=== PATIENT | female | born 1990 | race Caucasian/White ===

== ENCOUNTER 2017-06-12 20:19 | Emergency (ER) | payer OTHER ==
[~2017-06-12] VITALS: Ht 157.5 cm; Wt 77.0 kg
[2017-06-12 20:20] VITALS: Ht 157.5 cm; Wt 77.0 kg
[2017-06-12 21:25] LABS: ADD SCAN DIFF NO
[2017-06-12 21:29] LABS: BASOPHILS % 0.3 % (0.0-2.0); EOSINOPHILS # 0.1 10^3/ul (0.0-0.5); HEMATOCRIT 34.8 % (37.0-47.0); HEMOGLOBIN 11.2 g/dl (12.0-16.0); LYMPHOCYTES # 2.5 10^3/ul (0.8-2.9); LYMPHOCYTES % 21.4 % (15.0-51.0); MEAN CORPUSCULAR HEMOGLOBIN 26.6 pg (29.0-33.0); MEAN CORPUSCULAR HGB CONC 32.2 g/dl (32.0-37.0); MEAN CORPUSCULAR VOLUME 82.7 fl (82.0-101.0); MEAN PLATELET VOLUME 10.4 fl (7.4-10.4); MONOCYTE # 0.6 10^3/ul (0.3-0.9); MONOCYTES % 5.6 % (0.0-11.0); NEUTROPHIL # 8.1 10^3/ul (1.6-7.5); NEUTROPHILS % 70.7 % (39.0-77.0); PLATELET COUNT 237 10^3/UL (140-415); RED BLOOD COUNT 4.21 10^6/ul (4.20-5.40); WHITE BLOOD COUNT 11.5 10^3/ul (4.8-10.8)
[2017-06-12] MEDS ORDERED: PRENAT PO (21:38)
--- NOTE | 2017-06-12 21:38 | RADRPT ---
PROCEDURE: US OB. CLINICAL INDICATION: Size and dates , pelvic pain TECHNIQUE: Multiple sonographic images of the pelvis and gravid uterus were obtained. The images were reviewed on a PACS workstation. COMPARISON: No prior studies are available for comparison. FINDINGS: There is a single viable intrauterine gestation. Cardiac activity is present with 115 beats per min [place]. There is a variable presentation. The placenta is anterior fundal. There is no evidence for an abruption or placenta previa. There is a normal amount of amniotic fluid with a MVP = 3.8 cm. Measurements were made in order to determine age. The results are as follows: BPD =3.0 cm HC =10.4 cm AC =9.7 cm FL =1.8 cm Estimated gestational age of approximately 15 weeks and 2 days based on ultrasound measurements. The estimated date of delivery is 12/02/2017, based on ultrasound measurements. The ovaries are normal. The right ovary measures 3.5 x 2.0 cm. The left ovary measures 2.5 x 1.6 c m. The EFW = 123 g RPTAT: AA IMPRESSION: Single viable intrauterine gestation of approximately 15 weeks and 2 days based on ultrasound measu rements. .Santy Snowden MD, MD Date Time Electronically viewed and signed by .Santy Snowden MD, on 06/12/2017 21:38 .S/
[2017-06-12 21:42] LABS: ADD UMIC YES; UR ASCORBIC ACID NEGATIVE (NEGATIVE); UR BILIRUBIN (Dip) NEGATIVE (NEGATIVE); UR BLOOD (Dip) NEGATIVE (NEGATIVE); UR CLARITY SLIGHTLY CLOUDY (CLEAR); UR COLOR YELLOW (YELLOW); UR GLUCOSE (Dip) NEGATIVE (NEGATIVE); UR KETONES (Dip) NEGATIVE (NEGATIVE); UR LEUKOCYTE ESTERASE (Dip) 2+ Leu/ul (NEGATIVE); UR MUCUS FEW /HPF (NONE SEEN); UR NITRITE (Dip) NEGATIVE (NEGATIVE); UR RBC 0 /HPF (0-5); UR SPECIFIC GRAVITY (Dip) 1.027 (1.003-1.030); UR SQUAMOUS EPITHELIAL CELL MODERATE /HPF (FEW); UR TOTAL PROTEIN (Dip) NEGATIVE (NEGATIVE); UR UROBILINOGEN (Dip) NEGATIVE (NEGATIVE)
[2017-06-12] MEDS ORDERED: CEPH-443 PO (22:16)
--- NOTE | 2017-06-12 22:24 | ERD ---
ER Documentation Chief Complaint Date/Time DATE: 06/12/17 TIME: 22:21 Chief Complaint 19 wks preg. C/O abd pain. . Same s/s with 1st delivery @ 20 EGA. HPI This 26-year-old female who is 19 weeks complains a day to of lower pelvic pressure says she feels like there is pressure in the suprapubic region pushing down into the vagina. She says she had the same thing before when her first . She said the doctor told her when she has her second she will need to have her cervix shot. She was on bedrest for 4 months and infant. Says she has no vaginal bleeding she does have urinary frequency but no dysuria or hematuria and no fever. She is not having pelvic cramps but pressure that seems constant ROS All systems reviewed and are negative except as per history of present illness. Medications Home Meds Active Scripts Cephalexin* (Keflex*) 500 Mg Capsule, 500 MG PO QID for 7 Days, CAP Prov:DOMINGUEZ OBREGON DO 06/12/17 Reported Medications Multivit/Min/Fol Ac/Iron/Pren* ( S*) 1 Tab Tab, 1 TAB PO DAILY, TAB 06/12/17 Allergies Allergies: Coded Allergies: No Known Drug Allergies (Verified Allergy, Mild, 06/12/17) PMhx/Soc Medical and Surgical Hx: pt denies Medical Hx History of Surgery: Yes () Anesthesia Reaction: No Hx Neurological Disorder: No Hx Respiratory Disorders: No Hx Cardiac Disorders: No Hx Psychiatric Problems: No Hx Miscellaneous Medical Probl: No Hx Alcohol Use: No Hx Substance Use: No Hx Tobacco Use: No Smoking Status: Never smoker FmHx Family History: No coronary disease Physical Exam Vitals Vital Signs Date Time Temp Pulse Resp B/P Pulse Ox O2 Delivery O2 Flow Rate FiO2 06/12/17 20:20 99.2 98 18 136/86 98 Physical Exam Const: Well-developed, well-nourished Head: Atraumatic, normocephalic Eyes: Normal Conjunctiva, PERRLA, EOMI, normal sclera, no nystagmus ENT: Normal External Ears, Nose and Mouth, moist mucus membranes. Neck: Full range of motion. No meningismus, no lymphadenopathy. Resp: Clear to auscultation bilaterally, no wheezing, rhonchi, rales Cardio: Regular rate and rhythm, no murmurs, S1 S2 present Abd: Soft, non tender x 4, non distended. Suprapubic tenderness had some mild positive gravid normal bowel sounds, no guarding or rebound, no pulsitile abdominal masses or bruits : Chaperoned with dialysis tech. Manual transvaginal exam demonstrates no cervical motion tenderness in the cervical office is closed thick and high Skin: No petechiae or rashes, no ecchymosis , no maculopapular rash Back: No midline or flank tenderness Ext: No cyanosis, or edema, FROM x 4, normal inspection, neurovascularly intact x 4 Neur: Awake and alert, STR 5/5 x 4, sensation intact x 4, no focal findings, cerebellum intact Psych: Normal Mood and Affect Result Diagram: 06/12/172104 Results 24 hrs Laboratory Tests Test 06/12/17 21:00 06/12/17 21:05 Urine Color YELLOW Urine Clarity SLIGHTLY CLOUDY Urine pH 5.0 Urine Specific [place] 1.027 Urine Ketones NEGATIVEmg/dL Urine Nitrite NEGATIVEmg/dL Urine Bilirubin NEGATIVEmg/dL Urine Urobilinogen NEGATIVEmg/dL Urine Leukocyte Esterase 2+Germaine/ul Urine Microscopic RBC 0/HPF Urine Microscopic WBC 15/HPF Urine Squamous Epithelial Cells MODERATE/HPF Urine Calcium Oxalate Crystals FEW/HPF Urine Mucus FEW/HPF Urine Hemoglobin NEGATIVEmg/dL Urine Glucose NEGATIVEmg/dL Urine Total Protein NEGATIVEmg/dl White Blood Count 11.510^3/ul Red Blood Count 4.2110^6/ul Hemoglobin 11.2g/dl Hematocrit 34.8% Mean Corpuscular Volume 82.7fl Mean Corpuscular Hemoglobin 26.6pg Mean Corpuscular Hemoglobin Concent 32.2g/dl Red Cell Distribution Width 15.0% Platelet Count 11741^3/UL Mean Platelet Volume 10.4fl Neutrophils % 70.7% Lymphocytes % 21.4% Monocytes % 5.6% Eosinophils % 1.0% Basophils % 0.3% Nucleated Red Blood Cells % 0.0/100WBC Neutrophils # 8.110^3/ul Lymphocytes # 2.510^3/ul Monocytes # 0.610^3/ul Eosinophils # 0.110^3/ul Basophils # 0.010^3/ul Nucleated Red Blood Cells # 0.010^3/ul Procedures/MDM PROCEDURE: US OB. CLINICAL INDICATION: Size and dates , pelvic pain TECHNIQUE: Multiple sonographic images of the pelvis and gravid uterus were obtained. The images were reviewed on a PACS workstation. COMPARISON: No prior studies are available for comparison. FINDINGS: There is a single viable intrauterine gestation. Cardiac activity is present with 115 beats per minute. There is a variable presentation. The placenta is anterior fundal. There is no evidence for an abruption or placenta previa. There is a normal amount of amniotic fluid with a MVP = 3.8 cm. Measurements were made in order to determine age. The results are as follows: BPD = 3.0 cm HC = 10.4 cm AC = 9.7 cm FL = 1.8 cm Estimated gestational age of approximately 15 weeks and 2 days based on ultrasound measurements. The estimated date of delivery is 12/02/2017, based on ultrasound measurements. The ovaries are normal. The right ovary measures 3.5 x 2.0 cm. The left ovary measures 2.5 x 1.6 cm. The EFW = 123 g RPTAT: AA IMPRESSION: Single viable intrauterine gestation of approximately 15 weeks and 2 days based on ultrasound measurements. .Santy Snowden MD, MD Date Time Electronically viewed and signed by .Santy Snowden MD, MD on 06/12/2017 21: 38 .S/ CC: DOMINGUEZ OBREGON DO Patient has urinary tract infection will send off a culture and put her on Keflex. Told her to days of bedrest for threatened miscarriage. There is no evidence of placenta previa on exam or on sonogram. She will follow-up with her OB Departure Diagnosis: Primary Impression: Threatened Additional Impression: UTI (urinary tract infection) Urinary tract infection type: acute cystitis Hematuria presence: without hematuria Qualified Code: N30.00 - Acute cystitis without hematuria Condition: Stable Patient Instructions: Understanding Urinary Tract Infections (UTIs), Possible Miscarriage (Threatened ) DOMINGUEZ OBREGON DO Jun 12, 2017 22:24
== END 2017-06-12 22:19 | disposition home or self-care (01) ==
LOC: E/R 20:19
DX: O20.0 Threatened abortion (principal); O23.42 Unspecified infection of urinary tract in pregnancy, second trimester; R10.2 Pelvic and perineal pain; Z3A.15 15 weeks gestation of pregnancy
CPT/HCPCS: 36415; 76801; 81001; 84702; 85025; Z7502

== ENCOUNTER 2017-08-13 21:18 | Outpatient (CLI) | payer OTHER ==
[~2017-08-13] VITALS: Ht 160 cm; Wt 80.3 kg
[~2017-08-13 21:18] MED LIST: CEPH-443 PO; PRENAT PO
[2017-08-13 21:51] VITALS: Ht 160 cm; Wt 80.3 kg
[2017-08-13 21:52] VITALS: BP 106/56; PULSE 86; RESP 18
[2017-08-13] MEDS ORDERED: LACTATED RINGER'S 1,000 ML IV ONE (22:00)
[2017-08-13 22:47] LABS: ADD UMIC YES; UR ASCORBIC ACID NEGATIVE (NEGATIVE); UR BACTERIA FEW /HPF (NONE SEEN); UR BILIRUBIN (Dip) NEGATIVE (NEGATIVE); UR BLOOD (Dip) NEGATIVE (NEGATIVE); UR CLARITY SLIGHTLY CLOUDY (CLEAR); UR COLOR YELLOW (YELLOW); UR GLUCOSE (Dip) NEGATIVE (NEGATIVE); UR KETONES (Dip) NEGATIVE (NEGATIVE); UR LEUKOCYTE ESTERASE (Dip) 2+ Leu/ul (NEGATIVE); UR NITRITE (Dip) NEGATIVE (NEGATIVE); UR RBC 2 /HPF (0-5); UR SQUAMOUS EPITHELIAL CELL FEW /HPF (FEW); UR TOTAL PROTEIN (Dip) NEGATIVE (NEGATIVE); UR UROBILINOGEN (Dip) NEGATIVE (NEGATIVE)
--- NOTE | 2017-08-13 23:10 | RADRPT ---
PROCEDURE: CERVICAL LENGTH ULTRASOUND CLINICAL INDICATION: Pre-term labor. TECHNIQUE: Trans-vaginal imaging of the cervical canal was performed utilizing perry-scale imaging. Sagittal and transverse images were obtained. Trans-abdominal images were also obtained. The yaritza ges were reviewed on a PACS workstation. COMPARISON: OB ultrasound 06/12/2017. FINDINGS: The cervix is closed with a length of 5.0 cm. There is a single live intrauterine . heart rate is 140 beats per minute. Position is cephalic and placenta is anterior, grade 1. There is no placenta previa. IMPRESSION: 1. Cervical length measures 5.0 cm. RPTAT: HFN .Kendrick Potts MD, MD Date Time Electronically viewed and signed by .Kendrick Potts MD, MD on 08/13/2017 23:09 .N/
--- NOTE | 2017-08-13 23:59 | PN ---
Triage Information Date/Time Reason for visit: Abd/pelvic pain Weeks of Gestation 24 weeks /Para Diabetes: none Hypertention: none Objective Vital Signs Date Time Temp Pulse Resp B/P Pulse Ox O2 Delivery O2 Flow Rate FiO2 08/13/17 21:52 98.0 86 18 106/56 Room Air Heart Rate: 130's Heart Rate Comments Appropriate for Ga Contractions: None Exam Cervix closed Results/Medications Results 24 hrs Laboratory Tests Test 08/13/17 21:37 Urine Color YELLOW Urine Clarity SLIGHTLY CLOUDY A Urine pH 7.0 Urine Specific [place] 1.010 Urine Ketones NEGATIVE Urine Nitrite NEGATIVE Urine Bilirubin NEGATIVE Urine Urobilinogen NEGATIVE Urine Leukocyte Esterase 2+ H Urine Microscopic RBC 2 Urine Microscopic WBC 8 H Urine Squamous Epithelial Cells FEW Urine Bacteria FEW A Urine Hemoglobin NEGATIVE Urine Glucose NEGATIVE Urine Total Protein NEGATIVE Imaging Results Cervical length normal Disposition: Discharge Assessment/Plan No sign of labor D/C home Follow up in office 08/14/2017. JOEY KLINE MD Aug 13, 2017 23:59
--- NOTE | 2017-08-14 00:26 | TRIAGE ---
OB Triage Datetime Report Generated by CPN: 08/14/2017 00:25 Datetime: 08/13/2017 23:55 Stage of : OB Triage Datetime: 08/13/2017 23:50 Stage of : OB Triage Datetime: 08/13/2017 23:20 Stage of : OB Triage Labor Evaluation Frequency: NONE Monitor Mode: External Heart Rate FHR Baseline Rate: 145 Monitor Mode: External US Variability: Moderate 6-25 bpm Accelerations: 10X10 Datetime: 08/13/2017 22:20 Stage of : OB Triage Labor Evaluation Frequency: NONE Monitor Mode: External Heart Rate FHR Baseline Rate: 145 Monitor Mode: External US Variability: Moderate 6-25 bpm Accelerations: 10X10 Datetime: 08/13/2017 21:47 Stage of : OB Triage Datetime: 08/13/2017 21:22 EGA: 24.1 Time Provider Notified: 08/13/2017 21:47 Datetime: 08/13/2017 21:09 Time of Arrival: 08/13/2017 21:09 Arrived By: Wheelchair Arrived From: Home Chief Complaint: PT C.O VAGINAL PRESSURE AND LOWER ABDOMEN PAIN 09/10 Movement: Present Contractions: Regular Time Contractions Began: 08/13/2017 21:00 Rupture of Membranes: Denies Vaginal Discharge: Denies Recent Sexual Intercouse: Denies Abdominal Trauma: Not Applicable Patient Complaints: Cramping Time Provider Notified: 08/13/2017 21:47 Provider Notified: DR KLINE Initial Plan: TOCO AND EFM APPLY, NOTIFY .
== END 2017-08-14 00:11 | disposition home or self-care (01) ==
LOC: OBT 21:18 → L-D 21:20 → OBT 08-14 00:11
PROVIDERS: ATTEND Obstetrics & Gynecology
DX: O26.892 Other specified pregnancy related conditions, second trimester (principal); Z3A.24 24 weeks gestation of pregnancy; R10.2 Pelvic and perineal pain
CPT/HCPCS: 36415; 76817; 81001; J7120; Z7500; G0463

== ENCOUNTER 2017-10-10 10:18 | Outpatient (CLI) | payer OTHER ==
[~2017-10-10] VITALS: Ht 160 cm; Wt 82.5 kg
[~2017-10-10 10:18] MED LIST changes: -CEPH-443 PO
[2017-10-10 10:26] VITALS: BP 125/63; RESP 16; Ht 160 cm; Wt 82.5 kg
--- NOTE | 2017-10-10 11:42 | RADRPT ---
PROCEDURE: Limited obstetric ultrasound CLINICAL INDICATION: Pain TECHNIQUE: Multiple transverse and longitudinal grayscale images of the pelvis were obtained vigil sabdominally and transvaginally.. COMPARISON: None FINDINGS: The cervix is closed with a length of 3.7 cm. There is a single viable intrauterine gestation. Cardiac activity is present with 144 beats per min [place]. There is a vertex presentation. The placenta is fundal. There is no evidence for an abruption or placenta previa. RPTAT: AA IMPRESSION: Cervix length measures 3.7 cm. .Santy Snowden MD, MD Date Time Electronically viewed and signed by .Santy Snowden MD, on 10/10/2017 11:42 .S/
--- NOTE | 2017-10-10 11:42 | RADRPT ---
PROCEDURE: Limited obstetric ultrasound CLINICAL INDICATION: Pain TECHNIQUE: Multiple transverse and longitudinal grayscale images of the pelvis were obtained vigil sabdominally and transvaginally.. COMPARISON: None FINDINGS: The cervix is closed with a length of 3.7 cm. There is a single viable intrauterine gestation. Cardiac activity is present with 144 beats per min [place]. There is a vertex presentation. The placenta is fundal. There is no evidence for an abruption or placenta previa. RPTAT: AA IMPRESSION: Cervix length measures 3.7 cm. .Santy Snowden MD, MD Date Time Electronically viewed and signed by .Santy Snowden MD, on 10/10/2017 11:42 .S/
--- NOTE | 2017-10-10 11:42 | RADRPT ---
PROCEDURE: Limited obstetric ultrasound CLINICAL INDICATION: Pain TECHNIQUE: Multiple transverse and longitudinal grayscale images of the pelvis were obtained vigil sabdominally and transvaginally.. COMPARISON: None FINDINGS: The cervix is closed with a length of 3.7 cm. There is a single viable intrauterine gestation. Cardiac activity is present with 144 beats per min [place]. There is a vertex presentation. The placenta is fundal. There is no evidence for an abruption or placenta previa. RPTAT: AA IMPRESSION: Cervix length measures 3.7 cm. .Santy Snowden MD, MD Date Time Electronically viewed and signed by .Santy Snowden MD, on 10/10/2017 11:42 .S/
--- NOTE | 2017-10-10 13:36 | TRIAGE ---
OB Triage Datetime Report Generated by CPN: 10/10/2017 13:35 Datetime: 10/10/2017 12:40 Vaginal Exam Dilatation (cms): 0.0 Effacement (%): 50 Station: -3 Exam By: S. JANEEN Datetime: 10/10/2017 11:46 Labor Evaluation Frequency: 0 Pattern: Normal: <= 5 Contractions in 10 Minutes Resting Tone [place]: Relaxed Heart Rate FHR Baseline Rate: 14 Monitor Mode: External US Variability: Moderate 6-25 bpm Accelerations: 15X15 Decelerations: None Category: Category I Datetime: 10/10/2017 11:25 Comments: US AT BEDSIDE Datetime: 10/10/2017 11:03 Stage of : OB Triage Datetime: 10/10/2017 10:29 Stage of : OB Triage Assessment Type: Triage Maternal Assessment Level of Consciousness: Fully Conscious DTR's/Clonus: DTRs 2+; No Clonus Headache: Denies Blurred Vision: No Respiratory Effort: Unlabored; Regular Rhythm; Equal Expansion Breath Sounds, Left: Clear and Equal Breath Sounds, Right: Clear and Equal Nausea/Vomiting: Denies RUQ Epigastric Pain: Denies Lower Extremities Edema: None Degree: None Upper Extremities Edema: None Degree: None Facial Edema: None Temperature Route: Oral Fall Risk Assessment History of Falling: (0) No Secondary Diagnosis: (0) No Ambulatory Aid: (0) Bedrest/Nurse Assist IV Therapy: (0) No Gait: (0) Normal/Bedrest/Immobile Mental Status: (0) Oriented to Own Ability Fall Score: 0 Fall Risk Score Definition: No Risk: No action required Labor Evaluation Frequency: 0 Monitor Mode: External Heart Rate FHR Baseline Rate: 135 Monitor Mode: External US Variability: Moderate 6-25 bpm Accelerations: 15X15 Decelerations: None Category: Category I Pain Assessment Pain Scale: 8 Pain Presence: Intermittent Pain Type: Pressure Pain Location: Abdomen Datetime: 10/10/2017 10:28 Time of Arrival: 10/10/2017 10:14 EGA: 32.3 Arrived By: Ambulatory Arrived From: Home Chief Complaint: C/O FEELS ABDOMINAL PRESSURE Movement: Present Contractions: Denies/Absent Rupture of Membranes: Denies Vaginal Discharge: Denies Recent Sexual Intercouse: Denies Abdominal Trauma: Not Applicable Patient Complaints: Other Time Provider Notified: 10/10/2017 11:02 Provider Notified: DR. KLINE Initial Plan: [id number], CALL MD Datetime: 08/14/2017 00:11 Stage of : OB Triage Datetime: 08/13/2017 21:22 EGA: 24.1
--- NOTE | 2017-10-10 13:58 | CONS ---
Date/Time of Note Date/Time of Note DATE: 10/10/17 TIME: 13:50 Consultation Date/Type/Reason Admit Date/Time October 10, 2017 OB triage consult. This patient is a 27 years old 2 para 1 living 1 with estimated date of confinement of 11/03/2018 which makes her 32 weeks and 3 days she came in complaining of a pressure in her lower abdomen and vaginal area. She has a history of previous premature delivery and section. On examination she is a well-developed well-nourished at midterm. very rare contractions noted. on the tracing heart rate has normal variability and occasional acceleration no decelerations. Her general vital signs are within normal limits with blood pressure 124/63, pulse rate 107, respirations 16, temperature 98.5. On the pelvic examination which was performed by the nurse the cervix was closed thick and high with intact membranes Laboratory Tests Test 10/10/17 11:00 Urine Color YELLOW Urine Clarity SLIGHTLY CLOUDY Urine pH 6.0 Urine Specific [place] 1.019 Urine Ketones NEGATIVEmg/dL Urine Nitrite NEGATIVEmg/dL Urine Bilirubin NEGATIVEmg/dL Urine Urobilinogen NEGATIVEmg/dL Urine Leukocyte Esterase 1+Germaine/ul Urine Microscopic RBC 1/HPF Urine Microscopic WBC 3/HPF Urine Squamous Epithelial Cells FEW/HPF Urine Bacteria FEW/HPF Urine Mucus MODERATE/HPF Urine Hemoglobin NEGATIVEmg/dL Urine Glucose 1+mg/dL Urine Total Protein 1+mg/dl Constitutional: No chills, No diaphoresis, No disoriented, No febrile, No improved, No no complaints, No other, No poor po, No requiring IVF, No requiring O2 Eyes: No discharge, No no complaints, No other, No pain, No redness, No visual change ENT: No bleeding, No congestion, No discharge, No dysphagia, No no complaints, No other, No pain, No sore throat Respiratory: No cough, No no complaints, No other, No pain, No pleuritic pain, No shortness of breath, No sputum, No wheezing Cardiovascular: No chest pain, No edema, No lightheadedness, No no complaints, No orthopenea, No other, No palpitations, No paroxysmal nocturnal dyspnea Gastrointestinal: No blood, No constipation, No decreased appetite, No diarrhea , No flatus, No nausea, No no complaints, No other, No pain, No passing stool, No vomiting Genitourinary: other (On pelvic examination as I mentioned the cervix was described closed thick and hollowing), No bleeding, No discharge, No dysuria, No flank pain, No hematuria, No no complaints Musculoskeletal: No back pain, No bone/joint pain, No neck pain, No no complaints, No other, No restricted range of motion, No swelling Skin: No bruising, No erythema, No laceration, No no complaints, No other, No pruritis, No rash, No skin lesions Neurologic: No confusion, No dizziness, No focal-weakness, No headache, No no complaints, No other, No seizure, No syncope Endocrine: No dry skin, No no complaints, No other, No polydypsia, No polyuria , No temp intolerance Additional Comments Her urinalysis was basically normal with the protein 1+ positive, as well as glucose leukoesterase 1+ The rest of the exam were completely normal. We ordered an ultrasound study: The report is single viable intrauterine gestation with cardiac activity 144 bpm, vertex presentation ,her cervix was closed and the cervical length was 3.7 cm. With these finding patient was discharged home.Regarding the fact that she has a history of premature labor rest was recommended and she was asked to return to the triage area in case of labor, rupture of membranes or frequent contractions. end of dictation Social History Smoking Status: Never smoker Exam/Review of Systems Vital Signs Vitals Vital Signs Date Time Temp Pulse Resp B/P Pulse Ox O2 Delivery O2 Flow Rate FiO2 10/10/17 10:26 98.5 16 125/63 Results Results 24 hrs Laboratory Tests Test 10/10/17 11:00 Urine Color YELLOW Urine Clarity SLIGHTLY CLOUDY A Urine pH 6.0 Urine Specific [place] 1.019 Urine Ketones NEGATIVE Urine Nitrite NEGATIVE Urine Bilirubin NEGATIVE Urine Urobilinogen NEGATIVE Urine Leukocyte Esterase 1+ H Urine Microscopic RBC 1 Urine Microscopic WBC 3 Urine Squamous Epithelial Cells FEW Urine Bacteria FEW A Urine Mucus MODERATE Urine Hemoglobin NEGATIVE Urine Glucose 1+ H Urine Total Protein 1+ H FRANCISCO J GAYLE MD Oct 10, 2017 13:58
== END 2017-10-10 13:25 | disposition home or self-care (01) ==
LOC: OBT 10:18 → L-D 10:18 → OBT 13:25
PROVIDERS: ATTEND Obstetrics & Gynecology
DX: O26.893 Other specified pregnancy related conditions, third trimester (principal); Z3A.32 32 weeks gestation of pregnancy; R10.30 Lower abdominal pain, unspecified
CPT/HCPCS: 76815; 76817; 81001; Z7500; G0463

== ENCOUNTER 2017-10-29 21:29 | Inpatient (IN) | payer OTHER ==
[~2017-10-29] VITALS: Ht 160 cm; Wt 84.7 kg
[2017-10-29 21:53] VITALS: BP 118/70; PULSE 90; RESP 18; Ht 160 cm; Wt 84.7 kg
[2017-10-29] MEDS ORDERED: MAGNESIUM SULFATE 4 GM/100 ML 100 ML IV ONE (22:30)
[2017-10-29] MEDS ORDERED: BETAMET NA PHOS/AC(6 MG/ML) 5ML INJ IM SCH (22:30)
[2017-10-29] MEDS: LACTATED RINGER'S 1,000 ML IV SCH (23:01)
[2017-10-30] MEDS: MAGNESIUM SULFATE 20 GM/500 ML 500 ML IV SCH ×3 (00:11→19:25)
--- NOTE | 2017-10-30 01:09 | TRIAGE ---
OB Triage Datetime Report Generated by CPN: 10/30/2017 01:09 Datetime: 10/30/2017 00:14 Assessment Type: Admission Assessment Vaginal Bleeding: None Maternal Assessment Level of Consciousness: Fully Conscious DTR's/Clonus: DTRs 2+; No Clonus Headache: Denies Blurred Vision: No Respiratory Effort: Unlabored; Regular Rhythm; Equal Expansion Breath Sounds, Left: Clear and Equal Breath Sounds, Right: Clear and Equal Nausea/Vomiting: Denies RUQ Epigastric Pain: Denies Lower Extremities Edema: None Degree: None Upper Extremities Edema: None Degree: None Facial Edema: None Fall Risk Assessment History of Falling: (0) No Secondary Diagnosis: (0) No Ambulatory Aid: (0) Bedrest/Nurse Assist IV Therapy: (20) Yes Gait: (0) Normal/Bedrest/Immobile Mental Status: (0) Oriented to Own Ability Fall Score: 20 Fall Risk Score Definition: No Risk: No action required Heart Rate FHR Baseline Rate: 135 Variability: Moderate 6-25 bpm Accelerations: 15X15 Decelerations: None Category: Category I Pain Assessment Pain Scale: 7 Pain Presence: Intermittent Pain Type: Contraction Pain Location: Abdomen Pain Goal: 3 Pain Assessment Comments: Membrane Status: Intact Datetime: 10/29/2017 23:35 Stage of : Antepartum Datetime: 10/29/2017 23:01 Labor Evaluation Frequency: 3-4 Monitor Mode: External Duration (sec)2399: 80-100 Quality: Mild Pattern: Normal: <= 5 Contractions in 10 Minutes Resting Tone [place]: Relaxed Heart Rate FHR Baseline Rate: 135 Monitor Mode: External US FHR Baseline Changes: No Baseline Change Variability: Moderate 6-25 bpm Accelerations: 15X15 Decelerations: None Category: Category I Datetime: 10/29/2017 22:00 Labor Evaluation Frequency: IRREGULAR Monitor Mode: External Duration (sec)2399: 60 Quality: Mild Pattern: Normal: <= 5 Contractions in 10 Minutes Resting Tone [place]: Relaxed Heart Rate FHR Baseline Rate: 135 Monitor Mode: External US FHR Baseline Changes: No Baseline Change Variability: Moderate 6-25 bpm Accelerations: 15X15 Decelerations: None Category: Category I Vaginal Exam Dilatation (cms): 1.0 Effacement (%): 30 Station: -3 Exam By: Ruddy SIN RN Vaginal Bleeding: None Cervix, Consistency: Firm Cervix, Position: Posterior Datetime: 10/29/2017 21:50 Stage of : OB Triage Time of Arrival: 10/29/2017 21:25 EGA: 35.6 Arrived By: Wheelchair Arrived From: Home Chief Complaint: CONTRACTIONS SINCE 190 Movement: Present Time Contractions Began: 10/29/2017 19:00 Rupture of Membranes: Denies Vaginal Bleeding: None Vaginal Discharge: Denies Recent Sexual Intercouse: Denies Abdominal Trauma: Not Applicable Patient Complaints: None Time Provider Notified: 10/29/2017 22:10 Provider Notified: DR KLINE Initial Plan: CALL JOSELIN TRACY Maternal Assessment Level of Consciousness: Fully Conscious DTR's/Clonus: DTRs 2+; No Clonus Headache: Denies Blurred Vision: No Respiratory Effort: Unlabored; Regular Rhythm; Equal Expansion Breath Sounds, Left: Clear and Equal Breath Sounds, Right: Clear and Equal Nausea/Vomiting: Denies RUQ Epigastric Pain: Denies Lower Extremities Edema: None Degree: None Upper Extremities Edema: None Degree: None Facial Edema: None Temperature Route: Oral Fall Risk Assessment History of Falling: (0) No Secondary Diagnosis: (0) No Ambulatory Aid: (0) Bedrest/Nurse Assist IV Therapy: (0) No Gait: (0) Normal/Bedrest/Immobile Mental Status: (0) Oriented to Own Ability Fall Score: 0 Fall Risk Score Definition: No Risk: No action required Monitor Mode: External Monitor Mode: External US Pain Assessment Pain Scale: 7 Pain Presence: Intermittent Pain Type: Contraction Pain Location: Abdomen; Back Datetime: 10/10/2017 10:29 Fall Score: 0 Fall Risk Score Definition: No Risk: No action required Datetime: 10/10/2017 10:28 EGA: 33.1 Datetime: 08/13/2017 21:22 EGA: 24.6
[2017-10-30 01:15] LABS: ADD UMIC YES; UR ASCORBIC ACID NEGATIVE (NEGATIVE); UR BACTERIA FEW /HPF (NONE SEEN); UR BILIRUBIN (Dip) NEGATIVE (NEGATIVE); UR BLOOD (Dip) NEGATIVE (NEGATIVE); UR CLARITY CLEAR (CLEAR); UR COLOR YELLOW (YELLOW); UR GLUCOSE (Dip) NEGATIVE (NEGATIVE); UR KETONES (Dip) NEGATIVE (NEGATIVE); UR LEUKOCYTE ESTERASE (Dip) 1+ Leu/ul (NEGATIVE); UR NITRITE (Dip) NEGATIVE (NEGATIVE); UR RBC 1 /HPF (0-5); UR SPECIFIC GRAVITY (Dip) 1.012 (1.003-1.030); UR SQUAMOUS EPITHELIAL CELL FEW /HPF (FEW); UR TOTAL PROTEIN (Dip) NEGATIVE (NEGATIVE); UR UROBILINOGEN (Dip) NEGATIVE (NEGATIVE)
[2017-10-30 06:30] LABS: BASOPHILS % 0.2 % (0.0-2.0); EOSINOPHILS % 0.1 % (0.0-7.0); HEMATOCRIT 30.8 % (37.0-47.0); HEMOGLOBIN 9.7 g/dl (12.0-16.0); LYMPHOCYTES # 1.3 10^3/ul (0.8-2.9); LYMPHOCYTES % 11.2 % (15.0-51.0); MEAN CORPUSCULAR HEMOGLOBIN 23.8 pg (29.0-33.0); MEAN CORPUSCULAR HGB CONC 31.5 g/dl (32.0-37.0); MEAN CORPUSCULAR VOLUME 75.5 fl (82.0-101.0); MEAN PLATELET VOLUME 10.6 fl (7.4-10.4); MONOCYTE # 0.1 10^3/ul (0.3-0.9); MONOCYTES % 0.9 % (0.0-11.0); NEUTROPHIL # 9.8 10^3/ul (1.6-7.5); NEUTROPHILS % 86.6 % (39.0-77.0); PLATELET COUNT 270 10^3/UL (140-415); RED BLOOD COUNT 4.08 10^6/ul (4.20-5.40); RED CELL DISTRIBUTION WIDTH 15.5 % (11.5-14.5); WHITE BLOOD COUNT 11.3 10^3/ul (4.8-10.8)
[2017-10-30 06:58] LABS: INR 0.95; PROTIME 12.7 Sec (12.2-14.2)
[2017-10-30 06:59] LABS: PARTIAL THROMBOPLASTIN TIME 28.5 Sec (25.0-35.0)
[2017-10-30] MEDS: DOCUSATE SODIUM 100 MG CAP PO SCH (09:00)
[2017-10-30] MEDS: PRENATAL VITAMIN PO SCH (09:26)
[2017-10-30] MEDS: LACTATED RINGER'S 1,000 ML IV SCH ×3 (09:56→22:26)
[2017-10-30] MEDS ORDERED: BETAMET NA PHOS/AC(6 MG/ML) 5ML INJ IM ONE (11:36)
[2017-10-30 12:00] LABS: BARBITURATES Negative (NEGATIVE); BENZODIAZEPINES Negative (NEGATIVE); CANNABINOIDS Negative (NEGATIVE); COCAINE Negative (NEGATIVE); OPIATES Negative (NEGATIVE)
--- NOTE | 2017-10-30 15:16 | HP ---
Date/Time of Note Date/Time of Note DATE: 10/30/17 TIME: 15:14 OB - History Hx of Present Chief Complaint: contractions Estimated Due Date: Dec 04, 2017 : 2 Para: 1 Spontaneous : 0 Therapeutic : 0 Care: Good Care Ultrasounds: Normal mid trimester US Obstetrical Complications: None Medical Complications: None Past Family/Social History * Past Medical, Surgical, Family and Obstetric Histories reviewed from chart. GBS Status: Positive OB Admission Exam Vital Signs Vital Signs Vital Signs Date Time Temp Pulse Resp B/P Pulse Ox O2 Delivery O2 Flow Rate FiO2 10/29/17 21:53 98.5 90 18 118/70 Room Air Physical Exam HEENT: WNL Heart: Rhythm Normal Lungs: Clear, Equal Abdomen: WNL Extremities: Normal Reflexes: Normal Cervical Dilatation: 1cm Effacement: 50% Station: -1 Membranes: Intact Heart Rate: 130's Accelerations: Accelerations Present Decelerations: No Decelerations Varibility: Moderate Last 72 hours Lab Results CBC & BMP 10/30/17 05:40 Magnesium Level Test 10/30/17 05:40 10/30/17 13:28 Magnesium Level 4.6 H 5.0 H OB Assessment/Plan Reason for admission: labor Plan: Other Other plan: IV magnesium sulfate IM betamethasone JOEY KLINE MD Oct 30, 2017 15:16
[2017-10-31] MEDS: MAGNESIUM SULFATE 20 GM/500 ML 500 ML IV SCH ×2 (05:08→15:34)
[2017-10-31] MEDS: DOCUSATE SODIUM 100 MG CAP PO SCH (09:30)
[2017-10-31] MEDS: PRENATAL VITAMIN PO SCH (09:30)
[2017-10-31] MEDS: LACTATED RINGER'S 1,000 ML IV SCH ×2 (12:11→14:15)
--- NOTE | 2017-10-31 19:08 | QN ---
Documentation Comment Patient with occasional contractions Afebrile VSS Strip Category I Continue IV magnesium sulfate. JOEY KLINE MD Oct 31, 2017 19:08
[2017-11-01] MEDS: LACTATED RINGER'S 1,000 ML IV SCH ×4 (01:24→22:15)
[2017-11-01] MEDS: MAGNESIUM SULFATE 20 GM/500 ML 500 ML IV SCH (01:29)
[2017-11-01] MEDS: PRENATAL VITAMIN PO SCH (08:50)
[2017-11-01] MEDS: DOCUSATE SODIUM 100 MG CAP PO SCH (08:50)
[2017-11-01] MEDS ORDERED: AMPICILLIN 2 GM/NS (PMX) 100 ML IVPB SCH (09:30)
[2017-11-01] MEDS ORDERED: NIFEdipine 10 MG CAP PO SCH (09:30)
[2017-11-01] MEDS: NIFEdipine 10 MG CAP PO SCH ×3 (11:57→23:53)
--- NOTE | 2017-11-01 16:45 | PN ---
Date/Time of Note Date/Time of Note DATE: 11/01/17 TIME: 16:39 OB Subjective Subjective Subjective November 01, 2017 Hospital consult. This patient is a 27 years old 2 para 1 with estimated date of confinement of 12/08/2017 which makes her 35 weeks and 3 days. She was admitted due to premature contractions and the fact that she has a history of delivery by section at 25 weeks gestation with her first . Her contractions are not frequent at this time. heart tone is normal and stable, heart tracing is reactive Abdomen is ,soft no palpable contractions at this time. Her both doses of betamethasone was already given. Her mag sulfate was given for 24 hours. The preliminary report on culture and sensitivity of vaginal discharge indicate that the germ is Agalactia Strep and for this reason she was placed on ampicillin 2 g every 6 hours. Laboratory Tests Test 10/31/17 18:25 11/01/17 00:07 11/01/17 05:24 Magnesium Level 4.8mg/dl 4.7mg/dl 4.9mg/dl Current Medications Medications (Trade) Dose Ordered Sig/Dharmesh Route PRN Reason Start Time Stop Time Status Last Admin Dose Admin Lactated Ringer's 1,000 ml @ 125 mls/hr Q8H IV 10/29/17 22:15 11/01/17 15:47 Magnesium Sulfate 100 ml @ 200 mls/hr ONCE ONCE IV 10/29/17 22:30 10/29/17 22:59 DC 10/29/17 23:35 Magnesium Sulfate (Magnesium Sulfate 20 Gm/500 ml) 500 ml @ 50 mls/hr Q10H IV 10/29/17 23:00 11/01/17 09:23 DC 11/01/17 01:29 Betamethasone Acet/Betameth SodPhos (Celestone Soluspan) 12 mg Q24H IM 10/29/17 22:30 10/30/17 06:47 DC 10/29/17 23:36 Prenat Multivit/ [place]/Iron/Folic Ac () 1 tab DAILY PO 10/30/17 09:00 11/01/17 08:50 Docusate Sodium (Colace) 100 mg DAILY PO 10/30/17 09:00 11/01/17 08:50 Acetaminophen (Tylenol Tab) 650 mg Q4H PRN PO PAIN AND OR ELEVATED TEMP 10/29/17 22:30 Betamethasone Acet/Betameth SodPhos 12 mg 12 mg ONCE ONCE IM 10/30/17 11:36 10/30/17 11:37 DC 10/30/17 11:33 Ampicillin (Ampicillin 2 Gm/ NS (Pmx)) 100 ml @ 100 mls/hr Q6 IVPB 11/01/17 09:30 11/01/17 11:03 DC 11/01/17 10:53 Nifedipine (Procardia) 20 mg Q6 PO 11/01/17 09:30 11/01/17 10:39 DC Nifedipine 20 mg 20 mg Q6 PO 11/01/17 12:00 11/01/17 11:57 Ampicillin (Ampicillin 2 Gm/ NS (Pmx)) 100 ml @ 100 mls/hr Q6 IVPB 11/01/17 18:00 If any evidence of distress, rupture membrane ,active labor she will undergo repeat section . Other than that in consultation with perinatologist may wait a few days. End of dictation FRANCISCO J GAYLE MD Nov 01, 2017 16:45
[2017-11-01] MEDS: AMPICILLIN 2 GM/NS (PMX) 100 ML IVPB SCH ×2 (17:48→23:53)
[2017-11-02] MEDS: ACETAMINOPHEN 325 MG TAB PO PRN ×2 (06:18→10:45)
[2017-11-02] MEDS: AMPICILLIN 2 GM/NS (PMX) 100 ML IVPB SCH ×2 (06:20→12:01)
[2017-11-02] MEDS: NIFEdipine 10 MG CAP PO SCH (06:20)
[2017-11-02] MEDS: LACTATED RINGER'S 1,000 ML IV SCH ×2 (06:20→12:23)
[2017-11-02] MEDS: PRENATAL VITAMIN PO SCH (09:10)
[2017-11-02] MEDS: DOCUSATE SODIUM 100 MG CAP PO SCH (09:10)
--- NOTE | 2017-11-02 18:21 | QN ---
Documentation Comment Patient has been off magnesium sulfate and denies feeling any contractions. Afebrile VSS Abdomen soft Strip Category I JOEY KLINE MD Nov 02, 2017 18:21
--- NOTE | 2017-11-02 18:22 | DS ---
Date/Time of Note Date/Time of Note DATE: 11/02/17 TIME: 18:21 Obstetrical Discharge Record Final Diagnosis Final Diagnosis: not delivered Other Final Diagnosis Threatened labor Complications Tocolytics: Magnesium Sulfate Rupture of Membranes: No Condition on Discharge Physical Assessment Voiding: Yes Bowel Movement: Yes Calf Tenderness: No Patient Condition: Stable JOEY KLINE MD Nov 02, 2017 18:22
== END 2017-11-02 18:30 | disposition home or self-care (01) | DRG 780 ==
LOC: OBT 21:29 → L-D 21:31 → OBT 22:10 → OBG 22:10
PROVIDERS: ADMIT Obstetrics & Gynecology; ATTEND Obstetrics & Gynecology
DX: O47.03 False labor before 37 completed weeks of gestation, third trimester (principal); Z3A.38 38 weeks gestation of pregnancy
CPT/HCPCS: 36415; 80307; 81001; 83735; 85025; 85610; 85730; 86592; 86850; 86900; 86901; 87086; G0463; J0290; J0702; J3475; J7120

== ENCOUNTER 2017-11-08 12:02 | Inpatient (IN) | payer OTHER ==
[~2017-11-08] VITALS: Ht 160 cm; Wt 85.2 kg
[~2017-11-08 12:02] MED LIST changes: +OXYTOCIN 30 UNITS/LR 500 ML BAG IV ONE
[2017-11-08 12:33] VITALS: Ht 160 cm; Wt 85.2 kg
[2017-11-08 12:57] VITALS: BP 110/66; PULSE 104; RESP 20
--- NOTE | 2017-11-08 13:11 | RADRPT ---
PROCEDURE: US OB. CLINICAL INDICATION: Ruptured membranes TECHNIQUE: Multiple sonographic images of the pelvis were obtained. The images were reviewed on a PACS workstation. COMPARISON: No prior studies are available for comparison. FINDINGS: There is a single live intrauterine . cardiac activity is identified at a rate of 15 6 beats per minute. presentation is cephalic. Placenta is right lateral grade 2. Biophysical profile score is as follows: Breathing 2 Movements 2 Tone 2 Fluid volume 0 Amniotic fluid index = 4.3 cm Total biophysical profile score = 05/09 IMPRESSION: Biophysical profile score = 05/09 Oligohydramnios RPTAT: HH .Vaibhav Ko MD, MD Date Time Electronically viewed and signed by .Vaibhav Ko MD, on 11/08/2017 13:11 .W/
[2017-11-08 13:14] LABS: ADD UMIC YES; UR ASCORBIC ACID 40 mg/dL (NEGATIVE); UR BILIRUBIN (Dip) NEGATIVE (NEGATIVE); UR BLOOD (Dip) NEGATIVE (NEGATIVE); UR CLARITY CLEAR (CLEAR); UR COLOR YELLOW (YELLOW); UR GLUCOSE (Dip) NEGATIVE (NEGATIVE); UR KETONES (Dip) NEGATIVE (NEGATIVE); UR LEUKOCYTE ESTERASE (Dip) NEGATIVE Leu/ul (NEGATIVE); UR MUCUS FEW /HPF (NONE SEEN); UR NITRITE (Dip) NEGATIVE (NEGATIVE); UR RBC 0 /HPF (0-5); UR SPECIFIC GRAVITY (Dip) 1.019 (1.003-1.030); UR SQUAMOUS EPITHELIAL CELL FEW /HPF (FEW); UR TOTAL PROTEIN (Dip) 1+ mg/dl (NEGATIVE); UR UROBILINOGEN (Dip) NEGATIVE (NEGATIVE)
[2017-11-08] MEDS ORDERED: OXYTOCIN 30 UNITS/LR 500 ML IV PRN (14:00)
[2017-11-08] MEDS ORDERED: AMPICILLIN 2 GM/NS (PMX) 100 ML IV SCH (14:00)
[2017-11-08] MEDS ORDERED: MISOPROSTOL 200 MCG TAB PR PRN (14:00)
[2017-11-08] MEDS ORDERED: METHYLERGONOVINE 0.2 MG INJ IM PRN (14:00)
[2017-11-08] MEDS ORDERED: OXYTOCIN 30 UNITS/LR 500 ML IV SCH ×2 (14:00→23:00)
[2017-11-08] MEDS ORDERED: CARBOPROST 250 MCG INJ IM PRN (14:00)
[2017-11-08] MEDS: AMPICILLIN 1 GM/NS (PMX) 50 ML IVPB SCH ×3 (15:10→21:00)
[2017-11-08] MEDS: LACTATED RINGER'S 1,000 ML IV SCH ×2 (15:10→17:18)
[2017-11-08 15:43] LABS: BASOPHILS % 0.2 % (0.0-2.0); EOSINOPHILS # 0.1 10^3/ul (0.0-0.5); EOSINOPHILS % 0.8 % (0.0-7.0); HEMATOCRIT 28.8 % (37.0-47.0); HEMOGLOBIN 9.4 g/dl (12.0-16.0); LYMPHOCYTES # 2.2 10^3/ul (0.8-2.9); LYMPHOCYTES % 22.6 % (15.0-51.0); MEAN CORPUSCULAR HEMOGLOBIN 24.2 pg (29.0-33.0); MEAN CORPUSCULAR HGB CONC 32.6 g/dl (32.0-37.0); MEAN PLATELET VOLUME 10.8 fl (7.4-10.4); MONOCYTE # 0.6 10^3/ul (0.3-0.9); MONOCYTES % 6.3 % (0.0-11.0); NEUTROPHIL # 6.7 10^3/ul (1.6-7.5); NEUTROPHILS % 68.9 % (39.0-77.0); PLATELET COUNT 231 10^3/UL (140-415); RED BLOOD COUNT 3.89 10^6/ul (4.20-5.40); RED CELL DISTRIBUTION WIDTH 15.8 % (11.5-14.5); WHITE BLOOD COUNT 9.8 10^3/ul (4.8-10.8)
[2017-11-08 16:03] LABS: INR 0.89; PARTIAL THROMBOPLASTIN TIME 26.9 Sec (25.0-35.0); PROTIME 12.1 Sec (11.9-14.9); PT RATIO 0.9
[2017-11-08] MEDS ORDERED: CEFAZOLIN 2 GM/50 ML (PMX) 50 ML IVPB PRN (17:00)
[2017-11-08] MEDS ORDERED: LACTATED RINGER'S 1,000 ML IV ONE (19:00)
--- NOTE | 2017-11-08 19:23 | HP ---
Date/Time of Note Date/Time of Note DATE: 11/08/17 TIME: 19:20 OB - History Hx of Present Chief Complaint: leakage of fluid Estimated Due Date: Dec 04, 2017 : 2 Para: 1 Spontaneous : 0 Therapeutic : 0 Care: Good Care Ultrasounds: Normal mid trimester US Obstetrical Complications: None Medical Complications: None Past Family/Social History * Past Medical, Surgical, Family and Obstetric Histories reviewed from chart. GBS Status: Positive OB Admission Exam Vital Signs Vital Signs Vital Signs Date Time Temp Pulse Resp B/P Pulse Ox O2 Delivery O2 Flow Rate FiO2 11/08/17 12:57 99.1 104 20 110/66 Room Air Physical Exam HEENT: WNL Heart: Rhythm Normal Lungs: Clear, Equal Abdomen: WNL Extremities: Normal Reflexes: Normal Cervical Dilatation: 1cm Effacement: 50% Station: -1 Membranes: Ruptured Amniotic Fluid: Clear Heart Rate: 120's Accelerations: Accelerations Present Decelerations: No Decelerations Varibility: Moderate Last 72 hours Lab Results CBC & BMP 11/08/17 15:25 OB Assessment/Plan Reason for admission: rupture of membranes Plan: Section, Other (BTL) JOEY KLINE MD Nov 08, 2017 19:23
[2017-11-08] MEDS ORDERED: ONDANSETRON 4 MG INJ ONE ×2 (19:25→19:29)
[2017-11-08] MEDS ORDERED: CITRIC ACID/NA CITRATE 30 ML CUP ONE (19:26)
[2017-11-08] MEDS ORDERED: KETOROLAC 30 MG INJ ONE (19:29)
[2017-11-08] MEDS ORDERED: PHENYLephrine (100 MCG/ML) 5ML SYG ONE (19:29)
[2017-11-08] MEDS ORDERED: OXYTOCIN 10 UNIT INJ ONE (19:29)
[2017-11-08] MEDS ORDERED: morphine SULFATE/PF (10 MG/10 ML) INJ ONE (19:29)
[2017-11-08] MEDS ORDERED: METOCLOPRAMIDE 10 MG INJ ONE (19:29)
[2017-11-08] MEDS ORDERED: DEXAMETHASONE 4 MG/ML 1 ML INJ ONE (19:29)
--- NOTE | 2017-11-08 21:10 | OPPN ---
Date/Time of Note Date/Time of Note DATE: 11/08/17 TIME: 21:07 Operative Report Planned Procedure Procedure date Nov 08, 2017 Procedure(s) Repeat c/s and BTL Performed by see signature line Tying Machine Operator Dr Cantu Anesthesiologist: NORMA DUFFY MD Pre-procedure diagnosis Previous c/s SROM Anesthesia Type: spinal Post-Procedure Post-procedure diagnosis Same Findings Live Baby [], Apgars [] and [], weight [], position [], [] presentation []cord. Estimated Blood Loss: 600 - 700 mls Specimen(s) placenta, right and left Fallopian tubes Grafts/Implant(s) none Complication(s) none JOEY KLINE MD Nov 08, 2017 21:10
[2017-11-08] MEDS ORDERED: morphine 4 MG/ML VIAL IV PRN (21:30)
[2017-11-08] MEDS ORDERED: DIPHENHYDRAMINE 50 MG INJ IV PRN (21:30)
[2017-11-08] MEDS ORDERED: HYDROCODONE/APAP (5/325) TAB PO PRN (21:30)
[2017-11-08] MEDS ORDERED: morphine 2 MG INJ IV PRN (21:30)
[2017-11-08] MEDS ORDERED: HYDROmorphONE 0.5 MG/0.5 ML SYG IV PRN ×2 (21:30)
[2017-11-08] MEDS ORDERED: ACETAMINOPHEN 500 MG TAB PO PRN (21:30)
[2017-11-08] MEDS ORDERED: NALBUPHINE HCL (10 MG/1 ML) INJ IV PRN (21:30)
[2017-11-08] MEDS ORDERED: NALOXONE (0.4 MG/ML) INJ IV PRN (21:30)
[2017-11-08] MEDS ORDERED: ONDANSETRON 4 MG INJ IV STA (21:37)
[2017-11-08 23:35] VITALS: BP 107/59; PULSE 85; RESP 17
[2017-11-08 23:45] VITALS: BP 107/59; PULSE 76; RESP 17
[2017-11-08 23:55] VITALS: BP 105/66; PULSE 69; RESP 18
[2017-11-09] MEDS ORDERED: OXYTOCIN 30 UNITS/LR 500 ML IV SCH (01:31)
[2017-11-09] MEDS: LACTATED RINGER'S 1,000 ML IV SCH ×3 (01:31→18:10)
[2017-11-09] MEDS ORDERED: CARBOPROST 250 MCG INJ IM PRN (02:00)
[2017-11-09] MEDS ORDERED: OXYTOCIN 30 UNITS/LR 500 ML IV PRN (02:00)
[2017-11-09] MEDS ORDERED: MISOPROSTOL 200 MCG TAB PR PRN (02:00)
[2017-11-09] MEDS ORDERED: METHYLERGONOVINE 0.2 MG INJ IM PRN (02:00)
--- NOTE | 2017-11-09 03:19 | OPR ---
DATE OF OPERATION: 11/08/2017 PREOPERATIVE DIAGNOSES: 1. at 36 weeks and 2 days with previous section, spontaneous rupture of membranes. 2. Voluntary sterilization. POSTOPERATIVE DIAGNOSES: 1. at 36 weeks and 2 days with previous section, spontaneous rupture of membranes. 2. Voluntary sterilization. OPERATION PERFORMED: Repeat low transverse section and bilateral tubal ligation. SURGEON: Joey Haywood MD JOINERY PATTERNMAKER: Star Cantu MD ANESTHESIA: Spinal. ANESTHESIOLOGIST: Dr. Rose. PROCEDURE: The patient was taken to the operating room and placed on the operating table. After successful spinal anesthesia was given, the patient was placed in supine position. The area was prepared and draped in the usual sterile fashion. Spinal anesthesia was tested and was satisfactory. Using a scalpel, Pfannenstiel incision was made about 2 fingerbreadths above the symphysis pubis. The incision was carried to the fascia. The fascia was incised and extended bilaterally with Zayas scissors. Two Macey's were used to separate the fascia from the muscle. The muscle was dissected down to peritoneum. The peritoneum was secured with 2 Kellys and incised with Metzenbaum scissors. Using a scalpel, a small transverse incision was made on the lower segment of the uterus. Upon entering the uterine cavity, bandage scissors were inserted to extend the incision bilaterally, curved up. Baby was delivered from cephalic presentation. After suctioning clear of amniotic fluid , the baby was handed off to the team in attendance. Apgars were 8 and 9. The placenta was delivered without difficulty. Uterus was closed with # 1 Monocryl continuous locked. After assuring hemostasis, both ovaries and tubes were inspected, all looked normal. The right fallopian tube was grasped with a Alondra clamp. Using 0 plain suture ligature, a 5 cm segment of the right fallopian tube was doubly ligated. Using Metzenbaum scissors, a portion of the right fallopian tube above the ligated area was excised and sent to pathology. Same procedure was repeated on the left fallopian tube. After assuring hemostasis, the peritoneum was closed with 0 chromic continuous. The fascia was closed with #1 Vicryl continuous in 2 segments. Subcutaneous tissue was reapproximated with 2-0 plain. The skin was closed with es. ESTIMATED BLOOD LOSS: 700 mL. COUNTS: All counts were correct. Dictated By: JOEY GRECO/MICHELE Conf#: [id number] [facility]#: [id number] CC: ____ Alondra;*Nickolas* GHANSHYAM
[2017-11-09 04:00] VITALS: BP 99/56; PULSE 78; RESP 17
[2017-11-09 07:30] VITALS: BP 107/54; PULSE 86; RESP 18
[2017-11-09] MEDS: SENNA/DOCUSATE NA (8.6MG/50MG) TAB PO SCH ×2 (08:25→21:19)
[2017-11-09 08:47] LABS: BASOPHILS % 0.1 % (0.0-2.0); EOSINOPHILS % 0.1 % (0.0-7.0); HEMATOCRIT 28.4 % (37.0-47.0); HEMOGLOBIN 8.8 g/dl (12.0-16.0); LYMPHOCYTES # 2.4 10^3/ul (0.8-2.9); MEAN CORPUSCULAR HEMOGLOBIN 23.5 pg (29.0-33.0); MEAN CORPUSCULAR VOLUME 75.9 fl (82.0-101.0); MEAN PLATELET VOLUME 11.1 fl (7.4-10.4); MONOCYTE # 0.8 10^3/ul (0.3-0.9); MONOCYTES % 4.7 % (0.0-11.0); NEUTROPHIL # 13.8 10^3/ul (1.6-7.5); NEUTROPHILS % 80.5 % (39.0-77.0); PLATELET COUNT 237 10^3/UL (140-415); RED BLOOD COUNT 3.74 10^6/ul (4.20-5.40); RED CELL DISTRIBUTION WIDTH 15.9 % (11.5-14.5); WHITE BLOOD COUNT 17.1 10^3/ul (4.8-10.8)
[2017-11-09] MEDS ORDERED: CELECOXIB 200 MG CAP PO SCH (09:00)
[2017-11-09] MEDS: KETOROLAC 30 MG INJ IV PRN ×2 (10:21→16:14)
[2017-11-09 16:04] VITALS: BP 91/52; PULSE 85; RESP 18
--- NOTE | 2017-11-09 17:56 | QN ---
Documentation Comment No complaint Afebrile VSS Abdomen soft ND POD #1 Stable Ambulate Advance diet. JOEY KLINE MD Nov 09, 2017 17:56
[2017-11-09 20:00] VITALS: BP 96/50; PULSE 91; RESP 18
[2017-11-09] MEDS: FERROUS SULFATE (EC) 325 MG TAB PO SCH (21:19)
[2017-11-09] MEDS: IBUPROFEN 800 MG TAB PO SCH (21:32)
[2017-11-09] MEDS: OXYCODONE/ACETAMINOPHEN (5/325) TAB PO PRN (22:58)
[2017-11-10 04:00] VITALS: BP 99/58; PULSE 80; RESP 17
[2017-11-10] MEDS: IBUPROFEN 800 MG TAB PO SCH ×3 (06:05→21:21)
[2017-11-10] MEDS: OXYCODONE/ACETAMINOPHEN (5/325) TAB PO PRN ×5 (06:23→22:23)
[2017-11-10 07:50] VITALS: BP 98/54; PULSE 83; RESP 16
[2017-11-10] MEDS: FERROUS SULFATE (EC) 325 MG TAB PO SCH ×3 (08:42→20:21)
[2017-11-10] MEDS: SENNA/DOCUSATE NA (8.6MG/50MG) TAB PO SCH ×2 (08:43→20:21)
[2017-11-10] MEDS ORDERED: MEASLES,MUMPS,RUBELLA VACCINE INJ SC* ONE (12:00)
--- NOTE | 2017-11-10 15:21 | DS ---
Date/Time of Note Date/Time of Note DATE: 11/10/17 TIME: 15:20 Obstetrical Discharge Record Final Diagnosis Final Diagnosis: delivered Vaginal Delivery Obstetrical Delivery: Bilateral Tubal Ligation Section Section: Repeat Complications Labor Rupture of Membranes: Yes Gestational Age at Rupture 36 weeks Condition on Discharge Physical Assessment Voiding: Yes Bowel Movement: Yes Breast: Soft, non-tender, Filling Fundus: Firm Abdomen and Incision: incision intact Calf Tenderness: No Patient Condition: Stable JOEY KLINE MD Nov 10, 2017 15:21
[2017-11-10 15:30] VITALS: BP 104/70; PULSE 91; RESP 17
[2017-11-10] MEDS: LANOLIN 7 GM TUBE TOP PRN (16:27)
[2017-11-10 20:00] VITALS: BP 103/52; PULSE 94; RESP 17
[2017-11-11 04:00] VITALS: BP 107/64; PULSE 82; RESP 17
[2017-11-11] MEDS: IBUPROFEN 800 MG TAB PO SCH ×3 (05:09→22:25)
[2017-11-11 08:30] VITALS: BP 103/57; PULSE 82; RESP 19
[2017-11-11] MEDS ORDERED: DIPHTH/TET/ACEL PERTUSS (ADULT) 0.5 ML VIAL IM* ONE (09:00)
[2017-11-11] MEDS: SENNA/DOCUSATE NA (8.6MG/50MG) TAB PO SCH ×2 (10:17→21:24)
[2017-11-11] MEDS: FERROUS SULFATE (EC) 325 MG TAB PO SCH ×3 (10:17→21:24)
[2017-11-11] MEDS: OXYCODONE/ACETAMINOPHEN (5/325) TAB PO PRN ×3 (10:41→21:24)
[2017-11-11] MEDS ORDERED: MAGNESIUM HYDROXIDE 30ML CUP PO ONE (14:00)
[2017-11-11 16:00] VITALS: BP 118/74; PULSE 88; RESP 18
[2017-11-11 16:18] VITALS: BP 118/74; RESP 88
[2017-11-11 19:45] VITALS: BP 122/67; PULSE 93; RESP 18
--- NOTE | 2017-11-11 20:24 | QN ---
Documentation Comment No complaint Afebrile VSS Abdomen soft ND Stable Continue present care. JOEY KLINE MD Nov 11, 2017 20:24
[2017-11-12] MEDS: OXYCODONE/ACETAMINOPHEN (5/325) TAB PO PRN ×4 (01:41→17:48)
[2017-11-12 04:00] VITALS: BP 102/57; PULSE 76; RESP 18
[2017-11-12] MEDS: IBUPROFEN 800 MG TAB PO SCH ×2 (05:33→14:13)
[2017-11-12 08:00] VITALS: BP 107/56; PULSE 84; RESP 18
[2017-11-12] MEDS: SENNA/DOCUSATE NA (8.6MG/50MG) TAB PO SCH (08:50)
[2017-11-12] MEDS: FERROUS SULFATE (EC) 325 MG TAB PO SCH ×2 (08:50→12:59)
[2017-11-12 16:24] VITALS: BP 112/66; PULSE 85; RESP 17
[2017-11-12] MEDS: LANOLIN 7 GM TUBE TOP PRN (17:48)
== END 2017-11-12 18:30 | disposition home or self-care (01) | DRG 766 ==
LOC: OBT 12:02 → L-D 12:02 → OBT 14:17 → PP1 23:41
PROVIDERS: ADMIT Obstetrics & Gynecology; ATTEND Obstetrics & Gynecology
PROC: 0UB70ZZ Excision of Bilateral Fallopian Tubes, Open Approach (ICD-10-PCS; 2017-11-08)
PROC: 10D00Z1 Extraction of Products of Conception, Low, Open Approach (ICD-10-PCS; principal; 2017-11-08 20:00)
DX: O60.14X0 Preterm labor third trimester with preterm delivery third trimester, not applicable or unspecified (principal); O34.211 Maternal care for low transverse scar from previous cesarean delivery; Z30.2 Encounter for sterilization; Z37.0 Single live birth; Z3A.36 36 weeks gestation of pregnancy
CPT/HCPCS: 76818; 81001; 84112; 85025; 85610; 85730; 86592; 86850; 86900; 86901; 87070; 87340; 88302; 88307; 90715; 94760; 99464; G0463; J0290; J0690; J1100; J1885; J2274; J2370; J2405; J2590; J2765; J7120